=== PATIENT | male | born 1955 | race African-American/Black ===

== ENCOUNTER 2016-12-21 23:44 | Emergency (ER) | payer BC ==
[~2016-12-21] VITALS: Ht 177.8 cm; Wt 100.0 kg
[~2016-12-21 23:44] MED LIST: ASPIRIN 81M81 MG/TA2 PO; BACTRIM DS 8001 TAB PO; COLACE 100100 MG/CAP PO; FLOMAX 0.40.4 MG/CAP PO; GLUCOPHAGE1000 MG PO; GLUCOPHAGE500 MG/TAB; GLUCOPHAGE500 MG/TAB PO; HCTZ12.5TAB PO; LOPRESSOR 225 MG/TAB PO; NO HOME MEDICATIONS; NORCO 325 MG-51 TAB PO; NORVASC 5MG5 MG/TAB PO; PRINIVIL2.5 MG; PRINIVIL40 MG PO; PYRIDIUM200 M1 PO; TOPROL XL 25MG25 MG PO; TOPROL XL 50MG50 MG PO
[2016-12-21 23:49] VITALS: PULSE 58; TEMP 97.7
[2016-12-22 01:43] VITALS: BP 182/107
== END 2016-12-22 01:38 | disposition home or self-care (01) ==
LOC: COL.ER 23:44
DX: I10 Essential (primary) hypertension (principal); F41.9 Anxiety disorder, unspecified

== ENCOUNTER → 2017-12-12 | Outpatient (CLI) | payer OTHER | LOC: COL.RAD 07:30 | DX: M54.9 Dorsalgia, unspecified (principal); Z53.09 Procedure and treatment not carried out because of other contraindication ==

== ENCOUNTER 2017-12-31 16:24 | Emergency (ER) | payer OTHER ==
[~2017-12-31] VITALS: Ht 177.8 cm; Wt 94.1 kg
[2017-12-31 16:30] VITALS: TEMP 97.6
[2017-12-31] MEDS ORDERED: NORVASC 10MG10 MG PO (16:33)
[2017-12-31 17:34] LABS: BASO % 0.5 % (0.0-2.0); EOS # 0.1 (0.0-0.7); EOS % 1.4 % (0-4.0); GRAN # 2.9 (1.4-6.5); GRAN % 52.6 % (42.2-75.2); HEMATOCRIT 46.6 % (42.0-52.0); HEMOGLOBIN 15.6 g/dl (13.5-18.0); LYMPH # 2.1 (1.2-3.4); LYMPH % 37.2 % (20.0-51.0); MEAN CELL VOLUME 87 fl (80.0-100.0); MEAN CORPUSCULAR HEMOGLOBIN 29 pg (27.0-31.0); MEAN CORPUSCULAR HGB CONC 34 g/dl (33.0-37.0); MEAN PLATELET VOLUME 10.6 fl (7.4-10.4); MONO # 0.4 (0.1-0.6); MONO % 7.9 % (1.7-9.3); PLATELET COUNT 236 K/mm3 (130-400); RED BLOOD COUNT 5.33 M/mm3 (4.20-5.60); REDCELL DISTRIBUTION WIDTH-CV 12.7 % (11.5-14.5)
[2017-12-31 17:39] LABS: CREATININE, serum 0.93 mg/dL (0.66-1.25)
[2017-12-31 17:45] VITALS: BP 165/94
[2017-12-31 18:09] VITALS: PULSE 51
== END 2017-12-31 18:09 | disposition home or self-care (01) ==
LOC: COL.ER 16:24
PROVIDERS: Emergency Medicine
DX: I10 Essential (primary) hypertension (principal); R73.03 Prediabetes

== ENCOUNTER → 2018-04-05 | Outpatient (CLI) | payer OTHER ==
[~2018-04-05] VITALS: Ht 180.3 cm; Wt 100.0 kg
[~2018-04-05] MED LIST changes: +ASPIRIN E.C. 8181 MG PO; +NORVASC 10MG10 MG PO; +ULTRAM 50MG TAB50 MG PO; +XANAX 1MG1 MG PO
[2018-04-05 12:39] VITALS: BP 161/93; PULSE 70
[2018-04-05 14:15] VITALS: BP 128/84; PULSE 70
== END ==
LOC: COL.RAD 12:16
DX: M51.24 Other intervertebral disc displacement, thoracic region (principal); M51.27 Other intervertebral disc displacement, lumbosacral region; M12.88 Other specific arthropathies, not elsewhere classified, other specified site
CPT/HCPCS: G9654

== ENCOUNTER 2018-04-13 00:04 | Inpatient (IN) | payer OTHER ==
[2018-04-13] VITALS (390 sets, daily range): BP systolic 126–151; BP diastolic 66–92; PULSE 58–79; TEMP 97.4–98.2; O2SAT 91–100
[~2018-04-13] VITALS: Ht 177.8 cm; Wt 97.1 kg
[2018-04-13 00:37] LABS: COLLECTION METHOD CLEAN CATCH
[2018-04-13 00:42] LABS: BASO # 0.1 (0.0-0.2); BASO % 0.5 % (0.0-2.0); EOS % 0.4 % (0-4.0); GRAN % 70.6 % (42.2-75.2); HEMATOCRIT 44.7 % (42.0-52.0); HEMOGLOBIN 15.3 g/dl (13.5-18.0); LYMPH # 2.1 (1.2-3.4); LYMPH % 20.7 % (20.0-51.0); MEAN CELL VOLUME 86 fl (80.0-100.0); MEAN CORPUSCULAR HEMOGLOBIN 29 pg (27.0-31.0); MEAN CORPUSCULAR HGB CONC 34 g/dl (33.0-37.0); MEAN PLATELET VOLUME 11.7 fl (7.4-10.4); MONO # 0.7 (0.1-0.6); MONO % 7.2 % (1.7-9.3); PLATELET COUNT 273 K/mm3 (130-400); RED BLOOD COUNT 5.23 M/mm3 (4.20-5.60); REDCELL DISTRIBUTION WIDTH-CV 12.4 % (11.5-14.5)
[2018-04-13 00:45] LABS: MUCOUS Present /lpf; PH 5 (5-8); SQUAMOUS EPITHELIAL None Seen /hpf; URINE APPEARANCE Clear; URINE BACTERIA None Seen /hpf; URINE BILIRUBIN Negative (NEGATIVE); URINE BLOOD 1+ (NEGATIVE); URINE COLOR Straw; URINE GLUCOSE 3+ (NEGATIVE); URINE KETONE 2+ (NEGATIVE); URINE LEUKOCYTE ESTERASE Negative (NEGATIVE); URINE NITRATE Negative (NEGATIVE); URINE PROTEIN(semi-quant) 1+ (NEGATIVE); URINE RBC 0-2 /hpf; URINE UROBILINOGEN Negative (NEGATIVE)
[2018-04-13 00:53] LABS: ALBUMIN 4.6 gm/dL (3.5-5.0); BILIRUBIN,TOTAL 1.1 mg/dL (0.0-1.0); CALCIUM 10.1 mg/dL (8.4-10.2); CREATININE, serum 1.08 mg/dL (0.66-1.25); MAGNESIUM 2.2 mg/dL (1.6-2.3); PHOSPHOROUS 5.2 mg/dL (2.5-4.5); POTASSIUM 4.7 mmol/L (3.4-5.0); TOTAL PROTEIN 9.1 gm/dL (6.4-8.2)
[2018-04-13 03:10] LABS: CALCIUM 9.4 mg/dL (8.4-10.2); CREATININE, serum 1.05 mg/dL (0.66-1.25); MAGNESIUM 2.2 mg/dL (1.6-2.3); PHOSPHOROUS 4.2 mg/dL (2.5-4.5); POTASSIUM 4.5 mmol/L (3.4-5.0)
[2018-04-13 04:36] LABS: BASO % 0.5 % (0.0-2.0); EOS # 0.1 (0.0-0.7); EOS % 0.6 % (0-4.0); GRAN # 5.8 (1.4-6.5); HEMATOCRIT 40.4 % (42.0-52.0); HEMOGLOBIN 13.7 g/dl (13.5-18.0); MEAN CELL VOLUME 86 fl (80.0-100.0); MEAN CORPUSCULAR HEMOGLOBIN 29 pg (27.0-31.0); MEAN CORPUSCULAR HGB CONC 34 g/dl (33.0-37.0); MEAN PLATELET VOLUME 11.8 fl (7.4-10.4); MONO # 0.6 (0.1-0.6); MONO % 7.5 % (1.7-9.3); PLATELET COUNT 207 K/mm3 (130-400); REDCELL DISTRIBUTION WIDTH-CV 12.4 % (11.5-14.5)
[2018-04-13 04:46] LABS: ALBUMIN 3.9 gm/dL (3.5-5.0); CALCIUM 8.7 mg/dL (8.4-10.2); CREATININE, serum 0.89 mg/dL (0.66-1.25); POTASSIUM 4.3 mmol/L (3.4-5.0); TOTAL PROTEIN 7.3 gm/dL (6.4-8.2)
[2018-04-13 07:21] LABS: CALCIUM 8.4 mg/dL (8.4-10.2); CREATININE, serum 0.81 mg/dL (0.66-1.25); POTASSIUM 3.9 mmol/L (3.4-5.0)
[2018-04-13 10:18] LABS: CALCIUM 8.3 mg/dL (8.4-10.2); CREATININE, serum 0.75 mg/dL (0.66-1.25); POTASSIUM 3.6 mmol/L (3.4-5.0)
[2018-04-14 00:10] VITALS: BP 146/88; PULSE 57; TEMP 97.6
[2018-04-14 04:00] VITALS: BP 129/73; PULSE 60; TEMP 98.1
[2018-04-14 08:00] VITALS: BP 136/82; PULSE 77; TEMP 98
[2018-04-14 10:29] LABS: BASO % 0.5 % (0.0-2.0); EOS # 0.1 (0.0-0.7); GRAN # 3.7 (1.4-6.5); GRAN % 63.1 % (42.2-75.2); HEMATOCRIT 40.9 % (42.0-52.0); HEMOGLOBIN 14.1 g/dl (13.5-18.0); LYMPH # 1.5 (1.2-3.4); LYMPH % 25.7 % (20.0-51.0); MEAN CELL VOLUME 85 fl (80.0-100.0); MEAN CORPUSCULAR HEMOGLOBIN 29 pg (27.0-31.0); MEAN CORPUSCULAR HGB CONC 35 g/dl (33.0-37.0); MEAN PLATELET VOLUME 11.7 fl (7.4-10.4); MONO # 0.6 (0.1-0.6); MONO % 9.4 % (1.7-9.3); PLATELET COUNT 182 K/mm3 (130-400); RED BLOOD COUNT 4.79 M/mm3 (4.20-5.60); REDCELL DISTRIBUTION WIDTH-CV 12.4 % (11.5-14.5)
[2018-04-14 10:37] LABS: ALBUMIN 3.8 gm/dL (3.5-5.0); BILIRUBIN,TOTAL 1.2 mg/dL (0.0-1.0); CALCIUM 9.1 mg/dL (8.4-10.2); CREATININE, serum 0.82 mg/dL (0.66-1.25); MAGNESIUM 1.7 mg/dL (1.6-2.3); POTASSIUM 3.5 mmol/L (3.4-5.0); TOTAL PROTEIN 7.2 gm/dL (6.4-8.2)
[2018-04-14] MEDS ORDERED: FREESTYLE PREC1 EAC5 MC (10:58)
[2018-04-14] MEDS ORDERED: GLUCOSE TEST ST1 DEV MC (11:01)
[2018-04-14] MEDS ORDERED: B-D SAFETY GLID1 DE1 SQ (11:02)
[2018-04-14] MEDS ORDERED: BD ALCOHOL1 SWA TOP (11:04)
[2018-04-14] MEDS ORDERED: COZAAR 25MG25 MG/TAB PO (11:37)
[2018-04-14] MEDS ORDERED: NOVOLIN 70/30 710 ML SQ ×2 (11:45)
== END 2018-04-14 13:46 | disposition home health service (06) | DRG 639 ==
LOC: COL.ER 00:04 → ICU 01:27
PROVIDERS: Emergency Medicine; Hospitalist; Nurse Practitioner Family
DX: E11.10 Type 2 diabetes mellitus with ketoacidosis without coma (principal); I10 Essential (primary) hypertension; E11.65 Type 2 diabetes mellitus with hyperglycemia; Z87.891 Personal history of nicotine dependence
CPT/HCPCS: 99223-AI; 99239; J1650; J1815; J3480; J7030

== ENCOUNTER → 2018-05-28 | Outpatient (CLI) | payer OTHER ==
[~2018-05-28] MED LIST changes: +B-D SAFETY GLID1 DE1 SQ; +BD ALCOHOL1 SWA TOP; +COZAAR 25MG25 MG/TAB PO; +FREESTYLE PREC1 EAC5 MC; +GLUCOSE TEST ST1 DEV MC; +NOVOLIN 70/30 710 ML SQ
== END ==
LOC: SUN.DIA 14:39
DX: E11.9 Type 2 diabetes mellitus without complications (principal); F17.210 Nicotine dependence, cigarettes, uncomplicated
CPT/HCPCS: G0108

== ENCOUNTER 2021-11-30 12:36 | Outpatient (CLI) | payer MEDICARE ==
[2021-11-30 13:15] VITALS: BP 143/67; PULSE 59; TEMP 98.7
[2021-11-30 13:30] VITALS: BP 156/111; PULSE 63; TEMP 98.7
[2021-11-30 13:45] VITALS: BP 156/91; PULSE 63; TEMP 98.7
[2021-11-30] MEDS ORDERED: CORICIDIN HBP1 EACH PO (13:55)
[2021-11-30] MEDS ORDERED: ZOCOR 20MG20 MG PO (13:56)
[2021-11-30] MEDS ORDERED: ROXICODONE 55 MG/TAB PO (13:56)
[2021-11-30 14:00] VITALS: BP 142/85; PULSE 65; TEMP 98.7
[2021-11-30 14:15] VITALS: BP 162/85; PULSE 63; TEMP 98.7
[2021-11-30 14:30] VITALS: BP 148/63; PULSE 62; TEMP 98.7
== END 2021-11-30 14:40 | disposition home or self-care (01) ==
LOC: EUO 12:36
DX: U07.1 COVID-19 (principal); E11.9 Type 2 diabetes mellitus without complications
CPT/HCPCS: M0247; Q0247

== ENCOUNTER 2023-01-31 18:48 | Emergency (ER) | payer MEDICARE, MEDICAID ==
[~2023-01-31] VITALS: Ht 177.8 cm; Wt 100.0 kg
[~2023-01-31 18:48] MED LIST changes: +CORICIDIN HBP1 EACH PO; +MAGIC MOUTH PO; +ROXICODONE 55 MG/TAB PO; +ZOCOR 20MG20 MG PO
[2023-01-31 18:59] VITALS: TEMP 97.9
[2023-01-31 19:14] LABS: COLLECTION METHOD CLEAN CATCH
[2023-01-31 19:18] LABS: MUCOUS Present (NOT PRESENT); SQUAMOUS EPITHELIAL None Seen /hpf (0-10); URINE BACTERIA Rare /hpf (NONE SEEN); URINE RBC 20-50 /hpf (0-2)
[2023-01-31 19:21] LABS: PH 7.5 (5-8); URINE APPEARANCE Clear (CLEAR/HAZY); URINE COLOR Yellow (YELLOW); URINE GLUCOSE Negative (NEGATIVE); URINE KETONE Negative (NEGATIVE); URINE PROTEIN(semi-quant) 1+ (NEGATIVE)
[2023-01-31 19:22] LABS: URINE BLOOD 2+ (NEGATIVE); URINE NITRATE Negative (NEGATIVE); URINE UROBILINOGEN >=8.0 (NEGATIVE)
[2023-01-31 19:46] LABS: BASO % 0.6 % (0.0-2.0); EOS # 0.1 K/mm3 (0.0-0.7); EOS % 2.2 % (0.0-4.0); GRAN # 4.4 K/mm3 (1.4-6.5); GRAN % 68.2 % (42.2-75.2); HEMATOCRIT 44.7 % (42.0-52.0); HEMOGLOBIN 15.1 g/dl (13.5-18.0); LYMPH # 1.4 K/mm3 (1.2-3.4); MEAN CELL VOLUME 87 fl (80.0-100.0); MEAN CORPUSCULAR HEMOGLOBIN 29 pg (27-31); MEAN CORPUSCULAR HGB CONC 34 g/dl (33.0-37.0); MEAN PLATELET VOLUME 11.6 fl (7.4-10.4); MONO # 0.5 K/mm3 (0.1-0.6); MONO % 7.7 % (1.7-9.3); PLATELET COUNT 214 K/mm3 (130-400); RED BLOOD COUNT 5.17 M/mm3 (4.20-5.60); REDCELL DISTRIBUTION WIDTH-CV 12.9 % (11.5-14.5)
[2023-01-31 19:56] LABS: ALBUMIN 4.3 gm/dL (3.4-4.8); BILIRUBIN,TOTAL 1.4 mg/dL (0.2-1.2); CALCIUM 9.9 mg/dL (8.4-10.2); CREATININE, serum 0.96 mg/dL (0.72-1.25); POTASSIUM 3.9 mmol/L (3.5-4.5)
[2023-01-31 20:22] VITALS: BP 168/70; PULSE 69
== END 2023-01-31 20:22 | disposition home or self-care (01) ==
LOC: COL.ER 18:48
PROVIDERS: Nurse Practitioner
DX: R31.9 Hematuria, unspecified (principal); Z48.816 Encounter for surgical aftercare following surgery on the genitourinary system